=== PATIENT | female | born 1980 | race Caucasian/White ===

== ENCOUNTER 2017-01-04 21:48 | Emergency (ER) | payer MEDICAID ==
[2017-01-04 22:27] VITALS: BP 156/103
--- NOTE | 2017-01-05 02:15 | EDM.PDOC ---
ED HPI GENERAL MEDICAL PROBLEM - General Chief Complaint: Headache Stated Complaint: FACE IS GOING NUMB/SLURRED SPEECH/PAIN BEHIND EYE Time Seen by Provider: 01/04/17 22:11 Source of Information: Reports: Patient, Significant Other History Limitations: Reports: No Limitations - History of Present Illness INITIAL COMMENTS - FREE TEXT/NARRATIVE: History of present illness: [This 36-year-old female presents to the ER with a somewhat complex and complicated history but the main reason for coming in is right facial numbness. But she's been having some trouble since August with low back pain and numbness of her left leg and left hip which she attributes to wrenching her back when she was shoveling snow. She is seeing a chiropractor a number of times to try to alleviate her discomfort and pain but to no avail. Now in the last 3 days she's developed right-sided facial numbness. She's noticed that is difficult to speak at times and that she slurs her speech. She denies any difficulty swallowing. She is starting to have occasional headaches that she's not had in the past. She also states her vision is off at times. She's had no fevers or chills cough or cold symptoms chest pain shortness of breath abdominal pain nausea vomiting constipation diarrhea or dysuria.] Review of systems: As per history of present illness and below otherwise all systems reviewed and negative. Past medical history: As per history of present illness and as reviewed below otherwise noncontributory. Surgical history: As per history of present illness and as reviewed below otherwise noncontributory. Social history: No reported history of drug or alcohol abuse. Family history: As per history of present illness and as reviewed below otherwise noncontributory. Physical exam: HEENT: On examining her face she has diminished sensation to light touch on the right side of her face as compared to the left side of her face. Her facial muscles are intact and were tested by having her close her eyes tightly and opened them widely. But when she smiles she's got a little bit of a droop of the left corner of her mouth. Lungs: Clear to auscultation, breath sounds equal bilaterally, chest nontender. Heart: S1S2, regular, negative for clicks, rubs, or JVD. Abdomen: Soft, nondistended, nontender. Negative for masses or hepatosplenomegaly. Negative for costovertebral tenderness. Pelvis: Stable nontender. Genitourinary: Deferred. Rectal: Deferred. Extremities: He is noteworthy when asking her to show me were she's having numbness of her left leg that is a patchy distribution in that she will point to an area around her hip and then an area around her knee and they are not contiguous. Neuro: Awake, alert, oriented. Diagnostics: [The CT examination is demonstrating some demyelination of the left white matter that could be consistent with MS or a stroke but I think it most likely represents evidence for multiple sclerosis. This of course is unfortunate for her and an MRI of course would give us a more defined delineation of these lesions.] Therapeutics: [] Impression: [Patchy is to be lesion of numbness involving the face and left lower extremity with concerns for multiple sclerosis being raised by her presentation and these findings on CT.] Plan: [We are making arrangements for her to have an MRI. She does not have insurance and so we are also assisting her in contacting the appropriate personnel they can assist her with the medical expenses that she will be facing. ] Definitive disposition and diagnosis as appropriate pending reevaluation and review of above. Bilateral Hip Pain Score (Numeric/FACES): 8 - Related Data Allergies Allergy/AdvReac Type Severity Reaction Status Date / Time latex Allergy Rash Verified 01/04/17 22:06 Home Meds: Home Meds Ascorbic Acid/Ascorbate Sodium [Vit C-Yaritza Hips 500 mg Chew Tb] 1,000 mg PO DAILY 01/04/17 [History] Calcium Carbonate [Calcium] 1,000 mg PO DAILY 01/04/17 [History] Ibuprofen [Advil] 100 mg PO Q6HR 01/04/17 [History] Naproxen Sodium [Aleve] 220 mg PO Q6HR 01/04/17 [History] Past Medical History HEENT History: Reports: Impaired Vision - Past Surgical History GI Surgical History: Reports: Cholecystectomy Social & Family History - Tobacco Use Smoking Status *Q: Former Smoker Years of Tobacco use: 7 Used Tobacco, but Quit: Yes Month Tobacco Last Used: 4 years ago - Caffeine Use Caffeine Use: Reports: None - Recreational Drug Use Recreational Drug Use: No ED ROS GENERAL - Review of Systems Review Of Systems: ROS reveals no pertinent complaints other than HPI. - Physical Exam Exam: See Below Course - Vital Signs Last Recorded V/S: Last Vital Signs Temp 37.4 C 05/18/17 22:22 Pulse 133 H 01/04/17 22:22 Resp 16 01/04/17 22:22 BP 156/103 H 01/04/17 22:22 Pulse Ox 98 01/04/17 22:22 - Orders/Labs/Meds Orders: Active Orders 24 hr Category Date Time Status EKG Documentation Completion [RC] ASDIRECTED Care 01/04/17 22:24 Active Chest 2V [CR] Stat Exams 01/04/17 22:23 Taken Head wo Cont [CT] Stat Exams 01/04/17 22:23 Taken Lumbar Spine wo Cont [CT] Stat Exams 01/04/17 22:27 Taken BABESIA MICROTI IGG AND IGM [REF] Stat Lab 01/04/17 22:49 Ordered EHRLICHIA CHAFFEENSIS, IGG&IGM [REF] Routine Lab 01/04/17 22:28 Received EHRLICHIA CHAFFEENSIS, IGG&IGM [REF] Stat Lab 01/04/17 22:49 Ordered INFLUENZA A+B AG SCREEN [RM] Stat Lab 01/04/17 23:08 Ordered LYME,BY PCR [REF] Routine Lab 01/04/17 22:28 Received EKG 12 Lead [EK] Stat Ther 01/04/17 22:23 Ordered Labs: Laboratory Tests 01/04/17 01/04/17 01/04/17 Range/Units 22:23 22:23 22:23 WBC 10.9 (4.5-11.0) K/uL RBC 4.85 (3.30-5.50) M/uL Hgb 14.2 (12.0-15.0) g/dL Hct 43.4 (36.0-48.0) % MCV 90 (80-98) fL MCH 29 (27-31) pg MCHC 33 (32-36) % Plt Count 307 (150-400) K/uL Neut % (Auto) 73 H (36-66) % Lymph % (Auto) 20 L (24-44) % [place] % (Auto) 6 (2-6) % Eos % (Auto) 1 L (2-4) % Baso % (Auto) 1 (0-1) % ESR 16 (0-25) mm/hr Sodium 142 (140-148) mmol/L Potassium 3.8 (3.6-5.2) mmol/L Chloride 106 (100-108) mmol/L Carbon Dioxide 27 (21-32) mmol/L Anion Gap 9.1 (5.0-14.0) mmol/L BUN 13 (7-18) mg/dL Creatinine 0.9 (0.6-1.0) mg/dL Est Cr Clr Drug Dosing 74.62 mL/min Estimated GFR (MDRD) > 60 (>60) Glucose 114 H (74-106) mg/dL Lactic Acid 2.1 H (0.4-2.0) mmol/L Calcium 8.6 (8.5-10.1) mg/dL Total Bilirubin 0.4 (0.2-1.0) mg/dL AST 15 (15-37) U/L ALT 26 (12-78) U/L Alkaline Phosphatase 74 (46-116) U/L C-Reactive Protein (0.0-0.3) mg/dL Total Protein 7.8 (6.4-8.2) g/dL Albumin 4.1 (3.4-5.0) g/dL Globulin 3.7 H (2.3-3.5) g/dL Albumin/Globulin Ratio 1.1 L (1.2-2.2) TSH, Ultra Sensitive (0.358-3.740) uIU/mL Urine Color Urine Appearance Urine pH (4.5-8.0) Ur Specific [place] (1.008-1.030) Urine Protein (NEGATIVE) mg/dL Urine Glucose (UA) (NEGATIVE) mg/dL Urine Ketones (NEGATIVE) mg/dL Urine Occult Blood (NEGATIVE) Urine Nitrite (NEGATIVE) Urine Bilirubin (NEGATIVE) Urine Urobilinogen (NORMAL) mg/dL Ur Leukocyte Esterase (NEGATIVE) Urine RBC (0-5) Urine WBC (0-5) Ur Epithelial Cells Amorphous Sediment Urine Bacteria Urine Mucus Urine HCG, Qual 01/04/17 01/05/17 01/05/17 Range/Units 22:23 00:35 00:35 WBC (4.5-11.0) K/uL RBC (3.30-5.50) M/uL Hgb (12.0-15.0) g/dL Hct (36.0-48.0) % MCV (80-98) fL MCH (27-31) pg MCHC (32-36) % Plt Count (150-400) K/uL Neut % (Auto) (36-66) % Lymph % (Auto) (24-44) % [place] % (Auto) (2-6) % Eos % (Auto) (2-4) % Baso % (Auto) (0-1) % ESR (0-25) mm/hr Sodium (140-148) mmol/L Potassium (3.6-5.2) mmol/L Chloride (100-108) mmol/L Carbon Dioxide (21-32) mmol/L Anion Gap (5.0-14.0) mmol/L BUN (7-18) mg/dL Creatinine (0.6-1.0) mg/dL Est Cr Clr Drug Dosing mL/min Estimated GFR (MDRD) (>60) Glucose (74-106) mg/dL Lactic Acid (0.4-2.0) mmol/L Calcium (8.5-10.1) mg/dL Total Bilirubin (0.2-1.0) mg/dL AST (15-37) U/L ALT (12-78) U/L Alkaline Phosphatase (46-116) U/L C-Reactive Protein 0.19 (0.0-0.3) mg/dL Total Protein (6.4-8.2) g/dL Albumin (3.4-5.0) g/dL Globulin (2.3-3.5) g/dL Albumin/Globulin Ratio (1.2-2.2) TSH, Ultra Sensitive 1.208 (0.358-3.740) uIU/mL Urine Color Yellow Urine Appearance Slightly cloudy Urine pH 7.0 (4.5-8.0) Ur Specific [place] 1.015 (1.008-1.030) Urine Protein Negative (NEGATIVE) mg/dL Urine Glucose (UA) Normal (NEGATIVE) mg/dL Urine Ketones Negative (NEGATIVE) mg/dL Urine Occult Blood Moderate (NEGATIVE) Urine Nitrite Negative (NEGATIVE) Urine Bilirubin Negative (NEGATIVE) Urine Urobilinogen Normal (NORMAL) mg/dL Ur Leukocyte Esterase Moderate (NEGATIVE) Urine RBC 0-5 (0-5) Urine WBC 10-20 H (0-5) Ur Epithelial Cells Many Amorphous Sediment Rare Urine Bacteria Few Urine Mucus Few Urine HCG, Qual Negative Departure - Departure Time of Disposition: 02:15 Disposition: Home, Self-Care 01 Condition: fair Clinical Impression: Neurological abnormality - Discharge Information Forms: ED Department Discharge Additional Instructions: The nurses should be assisting you in making arrangements to have an MRI. This has been ordered but financial arrangements may need to be undertaken before this can be done but I think that this is due both for you with the assistance that we can give you. - My Orders Last 24 Hours: My Active Orders 01/04/17 22:23 Chest 2V [CR] Stat Head wo Cont [CT] Stat EKG 12 Lead [EK] Stat 01/04/17 22:24 EKG Documentation Completion [RC] ASDIRECTED 01/04/17 22:27 Lumbar Spine wo Cont [CT] Stat 01/04/17 22:28 EHRLICHIA CHAFFEENSIS, IGG&IGM [REF] Routine LYME,BY PCR [REF] Routine 01/04/17 22:49 BABESIA MICROTI IGG AND IGM [REF] Stat EHRLICHIA CHAFFEENSIS, IGG&IGM [REF] Stat 01/04/17 23:08 INFLUENZA A+B AG SCREEN [RM] Stat - Assessment/Plan Last 24 Hours: My Active Orders 01/04/17 22:23 Chest 2V [CR] Stat Head wo Cont [CT] Stat EKG 12 Lead [EK] Stat 01/04/17 22:24 EKG Documentation Completion [RC] ASDIRECTED 01/04/17 22:27 Lumbar Spine wo Cont [CT] Stat 01/04/17 22:28 EHRLICHIA CHAFFEENSIS, IGG&IGM [REF] Routine LYME,BY PCR [REF] Routine 01/04/17 22:49 BABESIA MICROTI IGG AND IGM [REF] Stat EHRLICHIA CHAFFEENSIS, IGG&IGM [REF] Stat 01/04/17 23:08 INFLUENZA A+B AG SCREEN [RM] Stat
--- NOTE | 2017-01-05 08:24 | CR ---
Chest 2V HISTORY: fever COMPARISON: None FINDINGS: Lungs appear clear and normally aerated. Cardiomediastinal silhouette is within normal limits. No va scular redistribution or pleural fluid can be seen. Bony structures and soft tissues are unremarkabl e. IMPRESSION: No acute chest abnormality identified.
== END 2017-01-05 02:32 | disposition home or self-care (01) ==
LOC: JP.ED 21:48
DX: R29.818 Other symptoms and signs involving the nervous system (principal); Z90.49 Acquired absence of other specified parts of digestive tract; Z87.891 Personal history of nicotine dependence; Z91.040 Latex allergy status; Z79.899 Other long term (current) drug therapy
CPT/HCPCS: 36415; 70450; 71020; 71020-26; 72131; 80053; 81001; 81025; 83605; 84443; 85025; 85651; 86140; 86666; 86666-59; 87476; 87804; 93005; 93010; 99284; 99284-25

== ENCOUNTER 2018-10-19 12:00 | Emergency (ER) | payer MEDICAID ==
[2018-10-19] MEDS ORDERED: hydrOXYzine HCl 100 MG/2 ML SDV IM ONE (12:03)
--- NOTE | 2018-10-19 12:09 | EDM.PDOC ---
ED HPI GENERAL MEDICAL PROBLEM - General Chief Complaint: Allergic Reaction Stated Complaint: alergic reaction Time Seen by Provider: 10/19/18 12:00 Source of Information: Reports: Patient, RN History Limitations: Reports: No Limitations - History of Present Illness INITIAL COMMENTS - FREE TEXT/NARRATIVE: 38 yo female was prescribed a new medication yesterday, Tecfidera, of which she took one yesterday and one this morning. After the 2nd dose she began itching and developed a hive-like rash all over her body. She did not take anything for her sx's that have been present now for about an hour. She denies difficulty with breathing or swallowing. Onset: Today Onset Date: 10/19/18 Onset Time: 11:00 Duration: Hour(s): (1), Constant Location: Reports: Generalized Quality: Reports: Other (itchy) Severity: Moderate Improves with: Reports: None Worsens with: Reports: Other (? time, ingestion of this new medication.) Context: Reports: Other (See HPI) Associated Symptoms: Reports: No Other Symptoms Treatments [employer]: Reports: Other (see below) (none) - Related Data Allergies Allergy/AdvReac Type Severity Reaction Status Date / Time latex Allergy Rash Verified 08/20/18 10:47 Home Meds: Home Meds Ascorbic Acid/Ascorbate Sodium [Vit C-Yaritza Hips 500 mg Chew Tb] 1,000 mg PO DAILY 01/04/17 [History] Ibuprofen [Advil] 200 mg PO Q6HR 01/04/17 [History] Naproxen Sodium [Aleve] 220 mg PO Q6HR 01/04/17 [History] Dimethyl Fumarate [Tecfidera] 1 tab PO DAILY 10/19/18 [History] Past Medical History HEENT History: Reports: Impaired Vision Genitourinary History: Reports: UTI, Recurrent Neurological History: Reports: MS Psychiatric History: Reports: Anxiety, Depression - Infectious Disease History Infectious Disease History: Reports: Chicken Pox - Past Surgical History GI Surgical History: Reports: Cholecystectomy Social & Family History - Caffeine Use Caffeine Use: Reports: Coffee, Tea ED ROS ALLERGIC REACTION - Review of Systems Review Of Systems: See Below Constitutional: Reports: No Symptoms HEENT: Reports: No Symptoms Respiratory: Reports: No Symptoms Cardiovascular: Reports: No Symptoms GI/Abdominal: Reports: No Symptoms : Reports: No Symptoms Musculoskeletal: Reports: No Symptoms Skin: Reports: Pruritis, Rash, Erythema Neurological: Reports: No Symptoms ED EXAM GENERAL NO PERIP PULSE - Physical Exam Exam: See Below Exam Limited By: No Limitations General Appearance: Alert, WD/WN, No Apparent Distress Eye Exam: Bilateral Eye: Normal Inspection Ears: Normal External Exam, Normal Canal, Hearing Grossly Normal, Normal TMs Nose: Normal Inspection, No Blood Throat/Mouth: Normal Inspection, Normal Lips, Normal Oropharynx, Normal Voice, No Airway Compromise Head: Atraumatic, Normocephalic Neck: Normal Inspection Respiratory/Chest: No Respiratory Distress, Lungs Clear, Normal Breath Sounds, No Accessory Muscle Use Cardiovascular: Regular Rate, Rhythm, No Edema Extremities: Normal Inspection Neurological: Alert, Oriented, CN II-XII Intact, Normal Cognition, No Motor/ Sensory Deficits Psychiatric: Normal Affect, Normal Mood Skin Exam: Warm, Dry, Intact, Erythema, Rash, Other (smaller hives diffusely.). No: Increased Warmth Course - Vital Signs Text/Narrative:: 40 min after Vistaril her rash is gone. Last Recorded V/S: Last Vital Signs Temp 36.8 C 10/19/18 12:03 Pulse 133 H 10/19/18 12:03 Resp 22 H 10/19/18 12:03 BP 150/104 H 10/19/18 12:03 Pulse Ox 97 10/19/18 12:03 - Orders/Labs/Meds Meds: Medications Discontinued Medications Generic Name Dose Route Start Last Admin Trade Name Andrew PRN Reason Stop Dose Admin Hydroxyzine HCl 75 mg 10/19/18 12:03 10/19/18 12:11 Vistaril IM 10/19/18 12:04 75 mg ONETIME ONE Administration Departure - Departure Time of Disposition: 12:46 Disposition: Home, Self-Care 01 Condition: Good Clinical Impression: Hives - Discharge Information *PRESCRIPTION DRUG MONITORING PROGRAM REVIEWED*: No *COPY OF PRESCRIPTION DRUG MONITORING REPORT IN PATIENT LAXMI: No Instructions: Hives, [id number] Referrals: Onofre Alcantara MD [Primary Care Provider] - Forms: ED Department Discharge Additional Instructions: Take diphenhydramine 50-75 mg every 4-6 hrs as needed for itching/rash. Hold your new medication until you have talked with your doctor. Return as needed. Avoid driving today due to the sedation from your medication.
[2018-10-19 12:15] VITALS: BP 150/104
== END 2018-10-19 13:00 | disposition home or self-care (01) ==
LOC: JP.ED 12:00
DX: L50.0 Allergic urticaria (principal); T49.4X5A Adverse effect of keratolytics, keratoplastics, and other hair treatment drugs and preparations, initial encounter; Z91.040 Latex allergy status; F41.9 Anxiety disorder, unspecified; F32.9 Major depressive disorder, single episode, unspecified; Z79.899 Other long term (current) drug therapy
CPT/HCPCS: 96372; 99282; J3410